=== PATIENT | male | born 2000 | race Hispanic/Latino ===

== ENCOUNTER 2020-08-17 11:45 | Emergency (ER) | payer SELFPAY ==
[~2020-08-17] VITALS: Ht 180.3 cm; Wt 115.7 kg
[2020-08-17 11:48] VITALS: BP 143/67
== END 2020-08-17 12:45 | disposition left against medical advice (07) ==
LOC: EDH 11:45
DX: R10.9 Unspecified abdominal pain (principal); Z53.21 Procedure and treatment not carried out due to patient leaving prior to being seen by health care provider